=== PATIENT | male | born 1945 | race Caucasian/White ===

== ENCOUNTER → 2022-05-12 | Outpatient (CLI) | payer MEDICARE ==
[~2022-05-12] MED LIST: FENTANYL CITRATE/PF 100MCG/2 ML INJ ONE; IOPAMIDOL 300MG/ML 100 ML INFUS..BTL IV ONE; LIDOCAINE HCL 1% LOCAL INJ 20 ML VIAL ONE; MIDAZOLAM HCL 2 MG/2 ML VIAL ONE; SODIUM CHLORIDE 0.9% 250ML 250 ML ONE
== END ==
LOC: DX 11:25
PROVIDERS: ATTEND Urology
DX: T19.0XXA Foreign body in urethra, initial encounter (principal); T19.1XXA Foreign body in bladder, initial encounter
CPT/HCPCS: J2001; J7050; Q9967; 51705; J2250; J3010

== ENCOUNTER 2023-02-06 19:00 | Emergency (ER) | payer MEDICARE, MEDICAID ==
[~2023-02-06] VITALS: Ht 152.4 cm; Wt 47.6 kg
[2023-02-06 20:32] LABS: CLARITY,URINE HAZY (CLEAR); COLOR,URINE YELLOW (YELLOW); KETONES,URINE NEGATIVE (NEGATIVE); LEUKOCYTE ESTERASE ,URINE LARGE (NEGATIVE); NITRITE,URINE POSITIVE (NEGATIVE); PROTEIN,URINE DIPSTICK 2+ (NEGATIVE)
[2023-02-06 20:33] LABS: URINE UROBILINOGEN 0.2 mg/dL (0.2 - 1)
[2023-02-06 20:43] LABS: BACTERIA,URINE FEW /HPF; WBC,URINE (MAN) >50 /HPF (0-5)
[2023-02-06] MEDS ORDERED: CEFDINIR300 MG PO (21:38)
[2023-02-07 02:11] VITALS: BP 144/63; PULSE 63; RESP 15; TEMP 98.1; O2SAT 100
== END 2023-02-07 00:20 | disposition home or self-care (01) ==
LOC: EDSEX 19:24 → ER 19:24
DX: Z46.6 Encounter for fitting and adjustment of urinary device (principal); N39.0 Urinary tract infection, site not specified; I12.9 Hypertensive chronic kidney disease with stage 1 through stage 4 chronic kidney disease, or unspecified chronic kidney disease; N18.9 Chronic kidney disease, unspecified; E78.5 Hyperlipidemia, unspecified; K21.9 Gastro-esophageal reflux disease without esophagitis; J45.909 Unspecified asthma, uncomplicated; F41.9 Anxiety disorder, unspecified
CPT/HCPCS: 81001; 87086; 87186; 99283